=== PATIENT | female | born 1960 | race Caucasian/White ===

== ENCOUNTER 2018-02-27 17:13 | Emergency (ER) | payer SELFPAY ==
[2018-02-27] MEDS ORDERED: cloNIDine HCl 0.1 MG TAB ONE ×2 (19:30→20:09)
--- NOTE | 2018-02-27 20:38 | ER ---
Nurse's Notes [facility] Name: Marcia Ng Age: 57 yrs Sex: Female : 1960 Arrival Date: 02/27/2018 Time: 17:18 Bed 8 Private MD: None, None Diagnosis: Essential (primary) hypertension Presentation: 02/27 17:19 Presenting complaint: Patient states: high blood pressure, [place], 226/124; hj denies headache; denies N/V;. Transition of care: patient was not received from another setting of care. Onset of symptoms was February 27, 2018. Risk Assessment: Do you want to hurt yourself or someone else? Patient reports no desire to harm self or others. Initial Sepsis Screen: Does the patient meet any 2 criteria? No. Patient's initial sepsis screen is negative. Does the patient have a suspected source of infection? No. Patient's initial sepsis screen is negative. Care prior to arrival: None. 17:19 Method Of Arrival: Ambulatory 17:19 Acuity: NAEL 3 17:24 Method Of Arrival: EMS: [facility] Triage Assessment: 17:23 General: Appears in no apparent distress. uncomfortable, Behavior is calm, cooperative, hj appropriate for age. Pain: Denies pain. Historical: - Allergies: 17:22 No Known Allergies; hj - Home Meds: 17:22 atorvastatin 20 mg oral tab 1 tab once daily [Active]; trazodone 100 mg Oral tab 1 tab hj 3 times per day [Active]; hydroxyzine HCl 50 mg Oral tab 1 tab 4 times per day [Active]; sertraline 100 mg oral tab 1 tab once daily [Active]; lisinopril 30 mg Oral tab 1 tab once daily [Active]; - PMHx: 17:22 Hyperlipidemia; Hypertension; hj - PSHx: 17:22 Hysterectomy; Tubal ligation; hj - Immunization history:: Adult Immunizations up to date. - Social history:: Smoking status: Patient uses tobacco products, Patient/guardian denies using alcohol. - Ebola Screening: : Patient negative for fever greater than or equal to 101.5 degrees Fahrenheit, and additional compatible Ebola Virus Disease symptoms Patient denies exposure to infectious person Patient denies travel to an Ebola-affected area in the 21 days before illness onset. Screenin:26 Abuse screen: Denies threats or abuse. Denies injuries from another. Nutritional hj screening: No deficits noted. Tuberculosis screening: No symptoms or risk factors identified. Fall Risk None identified. Assessment: 18:27 General: Appears in no apparent distress. uncomfortable, Behavior is calm, cooperative, aj1 appropriate for age. Pain: Denies pain. Neuro: Level of Consciousness is awake, alert, obeys commands. Cardiovascular: Patient's skin is warm and dry. Respiratory: Airway is patent Respiratory effort is even, unlabored, Respiratory pattern is regular, symmetrical. GI: No signs and/or symptoms were reported involving the gastrointestinal system. : No signs and/or symptoms were reported regarding the genitourinary system. EENT: No signs and/or symptoms were reported regarding the EENT system. Derm: No signs and/or symptoms reported regarding the dermatologic system. Skin is pink, warm \T\ dry. normal. Musculoskeletal: No signs and/or symptoms reported regarding the musculoskeletal system. Circulation, motion, and sensation intact. 20:47 Reassessment: Patient and/or family updated on plan of care and expected duration. Pain tl1 level reassessed. Patient is alert, oriented x 3, equal unlabored respirations, skin warm/dry/pink. Patient denies pain at this time. Patient states feeling better. Vital Signs: 17:23 BP 220 / 115; Pulse 110; Resp 18; Temp 98.2(O); Pulse Ox 98% on R/A; Weight 68.04 kg; hj Height 5 ft. 5 in. (165.10 cm); Pain 0/10; 18:26 BP 212 / 110; Pulse 92; Resp 18; Pulse Ox 95% on R/A; aj1 18:37 BP 178 / 97; Pulse 86; Resp 15; Pulse Ox 97% on R/A; Pain 0/10; ch 19:27 BP 197 / 98; Pulse 70; Resp 17; Pulse Ox 98% ; Pain 0/10; tl1 19:54 BP 207 / 96; Pulse 84; Resp 16; Pulse Ox 99% on R/A; mt 20:31 BP 197 / 100; Pulse 89; Resp 16; Pulse Ox 99% on R/A; mt 17:23 Body Mass Index 24.96 (68.04 kg, 165.10 cm) ED Course: 17:18 Patient arrived in ED. mr 17:18 None, None is Private Physician. mr 17:21 Triage completed. hj 17:26 Arm band placed on left wrist. hj 17:26 Patient has correct armband on for positive identification. Placed in gown. Bed in low hj position. Call light in reach. Side rails up X 1. 18:10 John Gaines NP is PHCP. pm1 18:10 Miller Ng MD is Attending Physician. pm1 18:23 Hailee Leyva RN is Primary Nurse. aj1 18:27 No provider procedures requiring assistance completed. aj1 20:48 Patient did not have IV access during this emergency room visit. tl1 Administered Medications: 19:26 Drug: cloNIDine 0.1 mg Route: PO; tl1 20:49 Follow up: Response: No adverse reaction; Marked relief of symptoms tl1 20:30 Drug: cloNIDine 0.1 mg Route: PO; tl1 20:49 Follow up: Response: No adverse reaction; Marked relief of symptoms tl1 Outcome: 20:38 Discharge ordered by MD. pm1 20:47 Discharged to home ambulatory, with friend. tl1 20:47 Condition: good 20:47 Discharge instructions given to patient, Instructed on discharge instructions, follow up and referral plans. medication usage, Demonstrated understanding of instructions, follow-up care, medications, Prescriptions given X 1. 20:50 Patient left the ED. tl1 Signatures: Vidhi Nuno RN RN Hailee Leyva RN RN aj1 Roxanna AlvaShirin RN RN tl1 Devin Bledsoe RN RN hj Marinas, Patrick, NP [facility] [address] [place] [place] Corrections: (The following items were deleted from the chart) 17:24 17:19 Transition of care: patient was not received from another setting of care. hj hj 17:25 17:23 Temp 98.2F Oral; 68.04 kg; Height 5 ft. 5 in.; BMI: 24.9; Pain 0/10; hj hj
--- NOTE | 2018-02-27 20:39 | EDPHYS ---
Physician Documentation [facility] Name: Marcia Ng Age: 57 yrs Sex: Female : 1960 Arrival Date: 02/27/2018 Time: 17:18 Bed 8 Private MD: None, None ED Physician Miller Ng HPI: 02/27 19:28 This 57 yrs old Female presents to ER via EMS with complaints of High Blood pm1 Pressure. 19:28 The patient has elevated blood pressure and discovered this at rehabilitation center. pm1 Onset: The symptoms/episode began/occurred today. Modifying factors: The symptoms are aggravated by nothing, The symptoms are alleviated by nothing. Associated signs and symptoms: Pertinent negatives: chest pain, dizziness, dyspnea, headache, lightheadedness, nausea, visual changes, vomiting, weakness. The patient has experienced similar episodes in the past, multiple times. doesn't have a PCP. Currently taking lisinopril 30 mg PO daily. Gets medications refilled at ER visits and during hospitalizations. Last hospitalized for alcohol withdrawal. Currently at [facility] for alcohol. Last drank alcohol 14 days ago. Historical: - Allergies: 17:22 No Known Allergies; hj - Home Meds: 17:22 atorvastatin 20 mg oral tab 1 tab once daily [Active]; trazodone 100 mg Oral tab 1 tab hj 3 times per day [Active]; hydroxyzine HCl 50 mg Oral tab 1 tab 4 times per day [Active]; sertraline 100 mg oral tab 1 tab once daily [Active]; lisinopril 30 mg Oral tab 1 tab once daily [Active]; - PMHx: 17:22 Hyperlipidemia; Hypertension; hj - PSHx: 17:22 Hysterectomy; Tubal ligation; hj - Immunization history:: Adult Immunizations up to date. - Social history:: Smoking status: Patient uses tobacco products, Patient/guardian denies using alcohol. - Ebola Screening: : Patient negative for fever greater than or equal to 101.5 degrees Fahrenheit, and additional compatible Ebola Virus Disease symptoms Patient denies exposure to infectious person Patient denies travel to an Ebola-affected area in the 21 days before illness onset. ROS: 19:28 Constitutional: Negative for fever, chills, and weight loss, Eyes: Negative for injury, pm1 pain, redness, and discharge, ENT: Negative for injury, pain, and discharge, Neck: Negative for injury, pain, and swelling, Cardiovascular: Negative for chest pain, palpitations, and edema, Respiratory: Negative for shortness of breath, cough, wheezing, and pleuritic chest pain, Abdomen/GI: Negative for abdominal pain, nausea, vomiting, diarrhea, and constipation, Back: Negative for injury and pain, : Negative for injury, bleeding, discharge, and swelling, MS/Extremity: Negative for injury and deformity, Skin: Negative for injury, rash, and discoloration, Neuro: Negative for headache, weakness, numbness, tingling, and seizure. Exam: 19:28 Constitutional: This is a well developed, well nourished patient who is awake, alert, pm1 and in no acute distress. Head/Face: Normocephalic, atraumatic. Eyes: Pupils equal round and reactive to light, extra-ocular motions intact. Lids and lashes normal. Conjunctiva and sclera are non-icteric and not injected. Cornea within normal limits. Periorbital areas with no swelling, redness, or edema. ENT: Nares patent. No nasal discharge, no septal abnormalities noted. Tympanic membranes are normal and external auditory canals are clear. Oropharynx with no redness, swelling, or masses, exudates, or evidence of obstruction, uvula midline. Mucous membranes moist. Neck: Trachea midline, no thyromegaly or masses palpated, and no cervical lymphadenopathy. Supple, full range of motion without nuchal rigidity, or vertebral point tenderness. No Meningismus. Chest/axilla: Normal chest wall appearance and motion. Nontender with no deformity. No lesions are appreciated. Cardiovascular: Regular rate and rhythm with a normal S1 and S2. No gallops, murmurs, or rubs. Normal PMI, no JVD. No pulse deficits. Respiratory: Lungs have equal breath sounds bilaterally, clear to auscultation and percussion. No rales, rhonchi or wheezes noted. No increased work of breathing, no retractions or nasal flaring. Abdomen/GI: Soft, non-tender, with normal bowel sounds. No distension or tympany. No guarding or rebound. No evidence of tenderness throughout. Back: No spinal tenderness. No costovertebral tenderness. Full range of motion. Skin: Warm, dry with normal turgor. Normal color with no rashes, no lesions, and no evidence of cellulitis. MS/ Extremity: Pulses equal, no cyanosis. Neurovascular intact. Full, normal range of motion. 19:28 Neuro: Orientation: is normal, Motor: is normal, moves all fours, Sensation: is normal, no obvious gross deficits, Gait: is steady, at a normal pace, without difficulty. Vital Signs: 17:23 BP 220 / 115; Pulse 110; Resp 18; Temp 98.2(O); Pulse Ox 98% on R/A; Weight 68.04 kg; hj Height 5 ft. 5 in. (165.10 cm); Pain 0/10; 18:26 BP 212 / 110; Pulse 92; Resp 18; Pulse Ox 95% on R/A; aj1 18:37 BP 178 / 97; Pulse 86; Resp 15; Pulse Ox 97% on R/A; Pain 0/10; ch 19:27 BP 197 / 98; Pulse 70; Resp 17; Pulse Ox 98% ; Pain 0/10; tl1 19:54 BP 207 / 96; Pulse 84; Resp 16; Pulse Ox 99% on R/A; mt 20:31 BP 197 / 100; Pulse 89; Resp 16; Pulse Ox 99% on R/A; mt 17:23 Body Mass Index 24.96 (68.04 kg, 165.10 cm) MDM: 18:11 Patient medically screened. pm1 19:27 Data reviewed: vital signs. Data interpreted: Pulse oximetry: on room air is 98 %. pm1 Interpretation: normal. Counseling: I had a detailed discussion with the patient and/or guardian regarding: the historical points, exam findings, and any diagnostic results supporting the discharge/admit diagnosis. 20:35 ED course: Patient does not want to wait for her blood pressure to improve with pm1 medications given in the ER. Will give patient a prescription for HCTZ with her lisinopril. Instructed patient to follow up with PCP for further management of blood pressure . 02/27 18:20 Order name: Recheck VS; Complete Time: 18:37 pm1 Administered Medications: 19:26 Drug: cloNIDine 0.1 mg Route: PO; tl1 20:49 Follow up: Response: No adverse reaction; Marked relief of symptoms tl1 20:30 Drug: cloNIDine 0.1 mg Route: PO; tl1 20:49 Follow up: Response: No adverse reaction; Marked relief of symptoms tl1 Disposition: 02/27/18 20:38 Discharged to Home. Impression: Essential (primary) hypertension. - Condition is Stable. - Discharge Instructions: Hypertension, How to Take Your Blood Pressure, [id number], DASH Eating Plan, Managing Your Hypertension. - Prescriptions for Hydrochlorothiazide 12.5 mg Oral Tablet - take 1 tablet by ORAL route once daily; 30 tablet. - Medication Reconciliation Form, Thank You Letter form. - Follow up: Emergency Department; When: As needed; Reason: Worsening of condition. Follow up: Private Physician; When: 2 - 3 days; Reason: Recheck today's complaints, Continuance of care, Re-evaluation by your physician. - Problem is new. - Symptoms have improved. Addendum: 03/12/2018 07:38 Co-signature as Attending Physician, Miller Ng MD I agree with the assessment and k dr plan of care. Signatures: Miller Ng MD MD [facility] Shirin Jernigan RN RN tl1 Devin Bledsoe RN RN John Gaines, KAREN TRADER pm1 Corrections: (The following items were deleted from the chart) 02/27 20:50 20:38 02/27/2018 20:38 Discharged to Home. Impression: Essential (primary) tl1 hypertension. Condition is Stable. Discharge Instructions: Hypertension. Prescriptions for Hydrochlorothiazide 12.5 mg Oral Tablet - take 1 tablet by ORAL route once daily; 30 tablet. and Forms are Medication Reconciliation Form, Thank You Letter, Antibiotic Education, Prescription Opioid Use. Follow up: Emergency Department; When: As needed; Reason: Worsening of condition. Follow up: Private Physician; When: 2 - 3 days; Reason: Recheck today's complaints, Continuance of care, Re-evaluation by your physician. Problem is new. Symptoms have improved. pm1
== END 2018-02-27 20:50 | disposition home or self-care (01) ==
LOC: ER 17:13
DX: I10 Essential (primary) hypertension (principal); E78.5 Hyperlipidemia, unspecified; Z72.0 Tobacco use
CPT/HCPCS: 99283

== ENCOUNTER 2019-09-29 19:48 | Emergency (ER) | payer SELFPAY ==
--- OUTSIDE RECORDS SUMMARY | 2019-09-29 19:52 | XMS REPORT | Clinical Summary ---
:1960 Author Organization [facility] Address [address] [place] [address] Care Team Providers Name Role Phone Asked, No Pcp Primary Care Provider Unavailable Allergies No Known Allergies Medications Medication Sig Dispensed Refills Start Date End Date Status atorvastatin (LIPITOR) Take 20 mg by 0 Active 20 MG tabletIndications: mouth nightly. hyperlipidemia Default OP ins lisinopril Take 20 mg by 0 Activ e (PRINIVIL,ZESTRIL) 20 mg mouth daily. tabletIndications: hypertension sertraline (ZOLOFT) 100 Take 1 tablet 30 tablet 0 02/19/2018 Active MG tabletIndications: (100 mg total) anxiety with depression by mouth daily. Active Problems Problem Noted Date Alcohol use disorder, severe, dependence 02/12/2018 Major depressive disorder, recurrent episode, severe 1 04/15/2017 Hyperlipidemia 02/12/2018 Hypertension 02/12/2018 Posttraumatic stress disorder 02/12/2018 Immunizations Name Administration Dates Next Due FLUCELVAX QUAD PF 02/14/2018 Social History Tobacco Use Types Packs/Day Years Used Date Never Assessed Sex Assigned at Date Recorded Not on file Job Start Date Occupation Industry Not on file Not on file Not on file Travel History Travel Start Travel End No recent travel history available. Last Filed Vital Signs Not on file Plan of Treatment Health Maintenance Due Date Last Done Comments CERVICAL CANCER SCREENING 06/29/1979 BREAST CANCER SCREENING 2008 COLONOSCOPY SCREENING 2008 SHINGLES VACCINES (#1) 2008 INFLUENZA VACCINE 09/25/2019 02/14/2018 Results Not on fileafter 09/28/2018 Advance Directives For more information, please contact: [phone] Type Date Recorded Patient [employer] Explanati on Advance Directives, Living 02/12/2018 2:35 AM Will and Medical Power of Relays [employer]
--- OUTSIDE RECORDS SUMMARY | 2019-09-29 19:52 | XMS REPORT | Continuity of Care Document ---
:1960 Author Organization [facility] t Address [facility] [address] [place] [address] Care Team Providers Name Role Phone Asked, Pcp Primary Care Physician Unavailable Problems Condition Condition Condition Status Onset Resolution Last Treating Co mments Source Name Details Category Date Date Treatment Clinician Date Alcohol Alcohol Disease Active 2017-02 [place] use use 2-20 [facility] disorder, disorder, 00:00: st severe, severe, 00 dependence dependence Major Major Disease Active 2017-02 [place] depressive depressive 2-20 Me thodi disorder, disorder, 00:00: st recurrent recurrent 00 episode, episode, severe severe Hyperlipid Hyperlipid Disease Active 2017-02 [place] emia emia 2-20 [facility] 00:00: st 00 Hypertensi Hypertensi Disease Active 2017-02 [place] on on 2-20 [facility] 00:00: st 00 Posttrauma Posttrauma Disease Active 2017-02 [place] tic stress tic stress 2-20 Me thodi disorder disorder 00:00: st 00 Allergies, Adverse Reactions, Alerts This patient has no known allergies or adverse reactions. Social History Social Habit Start Date Stop Date Quantity Comments Source Sex Assigned At Carole Mascorro Medications Ordered Filled Start Stop Current Ordering Indication Dosage Frequency Signature Comments Components Source Medication Medication Date Date Medication? Clinician (SIG) Name Name atorvastati 2017-02 Yes hyperlipide 20mg QD Take 20 mg [facility] n (LIPITOR) 2-27 [place] by mouth Meth wicho 20 MG 16:29: nightly. st tablet 01 Default OP ins lisinopril 2017-02 Yes hypertensio 20mg QD Take 20 mg [place] (PRINIVIL,Z 2-27 n by mouth Meth wicho ESTRIL) 20 16:29: daily. st mg tablet 01 sertraline 2017-02 Yes anxiety 100mg QD Take 1 [place] (ZOLOFT) 2-27 with tablet [facility] 100 MG 00:00: depression ([address] tablet 00 total) by mouth daily. Immunizations Ordered Immunization Filled Immunization Date Status Commen ts Source Name Name NIRU HUBBARD 2018-02-14 [facility] 00:00:00 [facility] Procedures This patient has no known procedures. Plan of Care Planned Activity Planned Date Details Comments Source Future Scheduled 2019-09-25 INFLUENZA VACCINE [place] [facility] 00:00:00 [code = INFLUENZA VACCINE] Future Scheduled 2008 BREAST CANCER [facility] 00:00:00 SCREENING [code = BREAST CANCER SCREENING] Future Scheduled 2008 [facility] 00:00:00 [code = COLONOSCOPY SCREENING] Future Scheduled 2008 SHINGLES VACCINES [place] [facility] 00:00:00 (#1) [code = SHINGLES VACCINES (#1)] Future Scheduled 1979-06-29 Screening for [facility] Test 00:00:00 malignant neoplasm of cervix (procedure) [code = 284301886] Results This patient has no known results.
[2019-09-29] MEDS ORDERED: HYDROCODONE/APAP 7.5/325 MG TAB ONE (20:53)
[2019-09-29] MEDS ORDERED: IBUPROFEN 400 MG TAB ONE (20:53)
--- NOTE | 2019-09-29 23:10 | EDPHYS ---
Physician Documentation [facility] Name: Marcia Ng Age: 59 yrs Sex: Female : 1960 Arrival Date: 09/29/2019 Time: 19:59 Bed 19 Private MD: ED Physician Vinod Arreguin HPI: 09/28 20:45 This 59 yrs old Female presents to ER via Ambulatory with complaints of Right cp Lower Leg Pain. 20:45 Onset: The symptoms/episode began/occurred 3 day(s) ago. cp 20:45 The complaints affect the medial aspect of right calf. cp 20:45 Context: resulted from an unknown cause. Modifying factors: the symptoms are aggravated cp by movement, palpation. Associated signs and symptoms: Pertinent negatives fever, numbness, chest pain, shortness of breath. Treatment prior to arrival includes: no previous treatment. Historical: - Allergies: 20:18 No Known Allergies; ca1 - PMHx: 20:18 Hyperlipidemia; Hypertension; ca1 - PSHx: 20:18 Hysterectomy; Tubal ligation; ca1 - Immunization history:: Adult Immunizations up to date. - Social history:: Smoking status: Patient reports the use of cigarette tobacco products, 3-4 cigs a day. ROS: 21:00 Constitutional: Negative for body aches, chills, fever, poor PO intake. cp 21:00 Cardiovascular: Negative for chest pain, palpitations. cp 21:00 Respiratory: Negative for cough, shortness of breath, wheezing. 21:00 Abdomen/GI: Negative for abdominal pain, nausea, vomiting, and diarrhea. 21:00 Back: Negative for injury or acute deformity, pain with movement, radiated pain. 21:00 MS/extremity: Positive for erythema, pain, swelling, tenderness, of the medial aspect of right calf, Negative for injury or acute deformity, decreased range of motion. 21:00 Skin: Negative for rash. 21:00 Neuro: Negative for headache, numbness, weakness. 21:00 All other systems are negative. Exam: 21:05 Constitutional: The patient appears in no acute distress, alert, awake, cp non-diaphoretic, non-toxic, well developed, well nourished. 21:05 Head/Face: Normocephalic, atraumatic. cp 21:05 Eyes: Periorbital structures: appear normal, Conjunctiva: normal, no exudate, no injection, Sclera: no appreciated abnormality, Lids and lashes: appear normal. 21:05 Chest/axilla: Inspection: normal. 21:05 Cardiovascular: Rate: normal, Edema: is not appreciated. 21:05 Respiratory: the patient does not display signs of respiratory distress, Respirations: normal. 21:05 Musculoskeletal/extremity: Extremities: grossly normal except: noted in the medial aspect of right calf: erythema, pain, swelling, tenderness, ROM: full passive range of motion, in the right leg, Perfusion: the extremity is normally perfused throughout, Sensation intact. DVT Exam: pain, that is moderate, of the medial aspect of right calf, swelling, that is mild, of the medial aspect of right calf, tenderness, that is moderate, of the medial aspect of right calf, erythema, that is mild, of the medial aspect of right calf. 21:05 Skin: cellulitis, is not appreciated. Vital Signs: 20:14 BP 157 / 117; Pulse 105; Resp 18 S; Temp 97.7(TE); Pulse Ox 99% on R/A; Weight 65.77 kg ca1 (R); Height 5 ft. 5 in. (165.10 cm) (R); 21:00 BP 147 / 91; Pulse 81; Resp 16; Pulse Ox 95% on R/A; Pain 8/10; mt2 22:00 BP 165 / 108; Pulse 92; Resp 16; Pulse Ox 95% on R/A; Pain 3/10; mt2 23:15 BP 170 / 95; Pulse 89; Resp 16; Pulse Ox 97% on R/A; Pain 0/10; mt2 20:14 Body Mass Index 24.13 (65.77 kg, 165.10 cm) ca1 MDM: 20:26 Patient medically screened. cp 21:00 Differential diagnosis: DVT, superficial embolism, cellulitis, abscess. cp 23:09 Data reviewed: vital signs, nurses notes, radiologic studies, ultrasound, and as a cp result, I will discharge patient. 23:09 Counseling: I had a detailed discussion with the patient and/or guardian regarding: the cp historical points, exam findings, and any diagnostic results supporting the discharge/admit diagnosis, radiology results, the need for outpatient follow up, a family practitioner, to return to the emergency department if symptoms worsen or persist or if there are any questions or concerns that arise at home. Response to treatment: the patient's symptoms have markedly improved after treatment, VSS. Pain improved with meds. US negative for embolism of deep vein RLE. Will discharge to home. Recommend heat and message to area, daily aspirin. 09/28 20:37 Order name: US Extremity Venous Unilateral Ltd cp Administered Medications: 20:47 Drug: Hydrocodone-Acetaminophen (7.5 mg-325 mg) 1 tabs Route: PO; mt2 21:40 Follow up: Response: No adverse reaction; Pain is decreased mt2 20:48 Drug: Ibuprofen 800 mg Route: PO; mt2 21:40 Follow up: Response: No adverse reaction; Pain is decreased mt2 Disposition: 23:25 Chart complete. cp Disposition: 09/29/19 23:10 Discharged to Home. Impression: Embolism and thrombosis of superficial veins of right lower extremities. - Condition is Stable. - Discharge Instructions: Venous Thromboembolism Prevention. - Prescriptions for Ibuprofen 800 mg Oral Tablet - take 1 tablet by ORAL route every 8 hours As needed take with food; 30 tablet. Tramadol 50 mg Oral Tablet - take 1 tablet by ORAL route every 8 hours as needed; 20 tablet. - Medication Reconciliation Form, Thank You Letter, Antibiotic Education, Prescription Opioid Use form. - Follow up: Private Physician; When: 2 - 3 days; Reason: Recheck today's complaints. - Problem is new. - Symptoms have improved. Addendum: 10/01/2019 04:30 Co-signature as Attending Physician, Vinod Arreguin MD. [facility] Signatures: Dispatcher [employer] EDMS Maynor Newby PA PA cp Sofi Fischer RN RN [facility] Vinod Arreguin MD MD [facility] Ilana Enriquez RN RN mt2 Corrections: (The following items were deleted from the chart) 09/28 23:20 23:10 09/29/2019 23:10 Discharged to Home. Impression: Embolism and thrombosis of mt2 superficial veins of right lower extremities. Condition is Stable. Forms are Medication Reconciliation Form, Thank You Letter, Antibiotic Education, Prescription Opioid Use. Follow up: Private Physician; When: 2 - 3 days; Reason: Recheck today's complaints. Problem is new. Symptoms have improved. cp 09/29 20:00 09/28 20:45 This 59 yrs old Female presents to ER via Ambulatory with cp complaints of Knee Pain. cp
--- NOTE | 2019-09-29 23:10 | ER ---
Nurse's Notes [facility] Name: Marcia Ng Age: 59 yrs Sex: Female : 1960 Arrival Date: 09/29/2019 Time: 19:59 Bed 19 Private MD: Diagnosis: Embolism and thrombosis of superficial veins of right lower extremities Presentation: 09/28 20:14 Chief complaint: Patient states: R leg pain x 3 days. Warm to touch, swollen. Pain ca1 radiates to the lower part of leg. Pain is worse with ambulation. Denies history of blood clots. Coronavirus screen: Client denies travel out of the [place] in the last 14 days. At this time, the client does not indicate any symptoms associated with coronavirus-19. Ebola Screen: Patient negative for fever greater than or equal to 101.5 degrees Fahrenheit, and additional compatible Ebola Virus Disease symptoms Patient denies exposure to infectious person. Patient denies travel to an Ebola-affected area in the 21 days before illness onset. No symptoms or risks identified at this time. Initial Sepsis Screen: Does the patient meet any 2 criteria? No. Patient's initial sepsis screen is negative. Does the patient have a suspected source of infection? No. Patient's initial sepsis screen is negative. Risk Assessment: Do you want to hurt yourself or someone else? Patient reports no desire to harm self or others. Onset of symptoms was September 29, 2019. 20:14 Method Of Arrival: Ambulatory ca1 20:14 Acuity: NAEL 3 ca1 Historical: - Allergies: 20:18 No Known Allergies; ca1 - PMHx: 20:18 Hyperlipidemia; Hypertension; ca1 - PSHx: 20:18 Hysterectomy; Tubal ligation; ca1 - Immunization history:: Adult Immunizations up to date. - Social history:: Smoking status: Patient reports the use of cigarette tobacco products, 3-4 cigs a day. Screenin:40 Abuse screen: Denies threats or abuse. Nutritional screening: No deficits noted. mt2 Tuberculosis screening: No symptoms or risk factors identified. Fall Risk None identified. Assessment: 21:00 Reassessment: Patient and/or family updated on plan of care and expected duration. Pain mt2 level reassessed. Patient is alert, oriented x 3, equal unlabored respirations, skin warm/dry/pink. General: Appears uncomfortable, Behavior is cooperative. Pain: Complains of pain in right leg Pain currently is 8 out of 10 on a pain scale. Quality of pain is described as burning. Neuro: No deficits noted. Cardiovascular: No deficits noted. Respiratory: No deficits noted. Respiratory: No deficits noted. GI: No deficits noted. : No deficits noted. EENT: No deficits noted. Derm: Skin temperature is hot. Musculoskeletal: Swelling present in medial aspect of right calf. 22:00 Reassessment: Patient and/or family updated on plan of care and expected duration. Pain mt2 level reassessed. Patient is alert, oriented x 3, equal unlabored respirations, skin warm/dry/pink. Patient denies pain at this time. General: Appears in no apparent distress. Behavior is cooperative. 23:15 Reassessment: Patient and/or family updated on plan of care and expected duration. Pain mt2 level reassessed. Patient is alert, oriented x 3, equal unlabored respirations, skin warm/dry/pink. Patient denies pain at this time. General: Appears in no apparent distress. Behavior is cooperative. Vital Signs: 20:14 BP 157 / 117; Pulse 105; Resp 18 S; Temp 97.7(TE); Pulse Ox 99% on R/A; Weight 65.77 kg ca1 (R); Height 5 ft. 5 in. (165.10 cm) (R); 21:00 BP 147 / 91; Pulse 81; Resp 16; Pulse Ox 95% on R/A; Pain 8/10; mt2 22:00 BP 165 / 108; Pulse 92; Resp 16; Pulse Ox 95% on R/A; Pain 3/10; mt2 23:15 BP 170 / 95; Pulse 89; Resp 16; Pulse Ox 97% on R/A; Pain 0/10; mt2 20:14 Body Mass Index 24.13 (65.77 kg, 165.10 cm) ca1 ED Course: 19:59 Patient arrived in ED. cf2 20:17 Triage completed. ca1 20:18 Arm band placed on right wrist. ca1 20:26 Maynor Newby PA is PHCP. cp 20:26 Vinod Arreguin MD is Attending Physician. cp 20:27 Ilana Enriquez RN is Primary Nurse. mt2 20:40 Patient has correct armband on for positive identification. Call light in reach. Side mt2 rails up X 1. 21:35 US Extremity Venous Unilateral Ltd In Process Unspecified. EDMS 23:16 No provider procedures requiring assistance completed. Patient did not have IV access mt2 during this emergency room visit. Administered Medications: 20:47 Drug: Hydrocodone-Acetaminophen (7.5 mg-325 mg) 1 tabs Route: PO; mt2 21:40 Follow up: Response: No adverse reaction; Pain is decreased mt2 20:48 Drug: Ibuprofen 800 mg Route: PO; mt2 21:40 Follow up: Response: No adverse reaction; Pain is decreased mt2 Outcome: 23:10 Discharge ordered by . cp 23:16 Discharged to home ambulatory. mt2 23:16 Condition: good 23:16 Discharge instructions given to patient, Instructed on discharge instructions, follow up and referral plans. medication usage, Demonstrated understanding of instructions, follow-up care, medications, Prescriptions given X 2. 23:20 Patient left the ED. mt2 Signatures: Dispatcher [employer] EDMS Maynor Newby PA PA cp Acob, Cheryl RN RN [facility] Don Pettit 2 Ilana Enriquez RN RN mt2
[2019-09-29 23:39] VITALS: TEMP 97.7
[2019-09-29 23:43] VITALS: BP 170/95; O2SAT 97
--- NOTE | 2019-09-30 07:19 | RAD REPORT ---
EXAM DESCRIPTION: US - Extremity Venous Uni Ltd - 09/29/2019 9:37 pm CLINICAL HISTORY: PAIN COMPARISON: None. TECHNIQUE: Real-time sonographic evaluation of the right lower extremity deep venous systems was per formed. FINDINGS: Normal compressibility, flow augmentation, phasic flow and spontaneous flow are identified in the right lower extremity common femoral, superficial femoral, popliteal and posterior tibial vei ns. No intraluminal filling defects seen. In the area of patient pain in the right calf there are dilated thrombosed superficial veins. No mass or abnormal fluid collection in the soft tissues. Preliminary findings provided at the time of the study. IMPRESSION: Superficial venous thrombosis in the right calf -area of patient pain. No deep venous thrombosis in the right lower extremity.
== END 2019-09-29 23:20 | disposition home or self-care (01) ==
LOC: ER 19:48
DX: I82.811 Embolism and thrombosis of superficial veins of right lower extremity (principal); I10 Essential (primary) hypertension; F17.210 Nicotine dependence, cigarettes, uncomplicated
CPT/HCPCS: 93971; 99283